=== PATIENT | male | born 1980 | race Caucasian/White ===

== ENCOUNTER 2025-06-12 01:26 | Emergency (ER) | payer OTHER ==
[~2025-06-12] VITALS: Ht 165.1 cm; Wt 68.0 kg
[2025-06-12 01:32] VITALS: O2SAT 98
[2025-06-12] MEDS: METHIMAZOLE 5MG TABLET PO SCH (03:56)
[2025-06-12] MEDS: TETRACAINE 0.5% OPHTH DROPS 4ML BOTHEYE ONE (04:13)
[2025-06-12] MEDS: FLUORESCEIN SODIUM 1MG/STRIP LEFTEYE ONE (04:13)
[2025-06-12 05:01] VITALS: BP 144/97; PULSE 66; RESP 16; TEMP 37; O2SAT 99
== END 2025-06-12 05:11 | disposition home or self-care (01) ==
LOC: ER 01:55
DX: H57.12 Ocular pain, left eye (principal); E05.90 Thyrotoxicosis, unspecified without thyrotoxic crisis or storm
CPT/HCPCS: 99283